=== PATIENT | female | born 1980 | race Caucasian/White ===

== ENCOUNTER 2017-07-14 14:44 | Emergency (ER) | payer OTHER ==
--- NOTE | 2017-07-14 15:01 | ED Physician Documentation ---
PD HPI Fall - Stated complaint Stated Complaint: FALL/ BACK & L BACK/LEG PAIN - Chief complaint Chief Complaint: Ext Problem - History obtained from History obtained from: Patient - History of Present Illness Mechanism of injury: Slipped Fall distance: Standing position, Less than 5ft Where injury occurred: Home Timing - onset: Today Injury(ies) location: Back (slipped and landed onto buttocks and low back, then slid down about 6 steps. Pain just in low back.). No: Head, Neck, Chest, Abdomen Quality of pain: Pain Associated symptoms: No: LOC, AMS, Weakness, Paresthesias Similar symptoms before: Has not had sx before Recently seen: Not recently seen Review of Systems : denies: Incontinent Musculoskeletal: reports: Back pain. denies: Neck pain, Extremity pain Neurologic: denies: Focal weakness, Numbness, Headache, Head injury PD PAST MEDICAL HISTORY - Past Medical History Cardiovascular: None Respiratory: None Neuro: Headache/migraine Endocrine/Autoimmune: None - Past Surgical History Past Surgical History: Yes HEENT: Tonsil/Adenoidectomy - Present Medications Home Medications: Ambulatory Orders Medication Instructions Recorded Confirmed Bcp 07/14/17 HYDROcod/ACETAM 5/325 [Preston 5/325] 1 tab PO Q6H PRN #15 tablet 07/14/17 Methocarbamol [Robaxin] 500 mg PO Q6H PRN #25 tablet 07/14/17 Naproxen [Naprosyn] 500 mg PO BID PRN #20 tablet 07/14/17 - Allergies Allergies/Adverse Reactions: Allergies Allergy/AdvReac Type Severity Reaction Status Date / Time Penicillins Allergy Anaphylaxis Verified 11/14/15 14:49 - Social History Does the pt smoke?: No Smoking Status: Never smoker Does the pt drink ETOH?: Yes Does the pt have substance abuse?: No - Immunizations Immunizations are current?: Yes PD ED PE NORMAL - Vitals Vital signs reviewed: Yes - General General: Alert and oriented X 3, No acute distress, Well developed/nourished - HEENT HEENT: Atraumatic - Neck Neck: Supple, no meningeal sign, No bony TTP, No adenopathy - Cardiac Cardiac: RRR, No murmur - Respiratory Respiratory: Clear bilaterally - Abdomen Abdomen: Normal bowel sounds, Soft, Non tender, Non distended - Back Back: No CVA TTP, Other (tender mid lumbar area mostly lateral msucles; but some midline tender as well. ) - Derm Derm: Normal color, Warm and dry - Extremities Extremities: No edema, No calf tenderness / cord - Neuro Neuro: Alert and oriented X 3, No motor deficit, No sensory deficit, Normal speech Results - Vitals Vitals: Oxygen O2 Source Room air - Labs Labs: Laboratory Tests 07/14/17 13:15 Urine Color YELLOW Urine Clarity HAZY Urine pH 6.0 Ur Specific [place] >=1.030 H Urine Protein NEGATIVE Urine Glucose (UA) NEGATIVE Urine Ketones NEGATIVE Urine Occult Blood NEGATIVE Urine Nitrite NEGATIVE Urine Bilirubin NEGATIVE Urine Urobilinogen 0.2 (NORMAL) Ur Leukocyte Esterase TRACE H Urine RBC 0-5 Urine WBC 6-10 H Ur Squamous Epith Cells MOD Squamous H Urine Bacteria Moderate H Ur Microscopic Review INDICATED Urine Culture Comments NOT INDICATED Urine HCG, Qual NEGATIVE - Rads (name of study) lumbar xray Radiology: Prelim report reviewed (no fractures), EMP read contemporaneously PD MEDICAL DECISION MAKING - ED course Complexity details: reviewed results, considered differential, d/w patient Departure - Departure Disposition: 01 Home, Self Care Clinical Impression: Fall down stairs Qualifiers: Encounter type: initial encounter Qualified Code(s): W10.8XXA - Fall (on) (from ) other stairs and steps, initial encounter Contusion of lower back Qualifiers: Encounter type: initial encounter Qualified Code(s): S30.0XXA - Contusion of lower back and pelvis, initial encounter Condition: Stable Record reviewed to determine appropriate education?: Yes Instructions: ED Contusion Back Prescriptions: HYDROcod/ACETAM 5/325 [Preston 5/325] 1 tab PO Q6H PRN #15 tablet PRN Reason: Pain Methocarbamol [Robaxin] 500 mg PO Q6H PRN #25 tablet PRN Reason: Spasms Naproxen [Naprosyn] 500 mg PO BID PRN #20 tablet PRN Reason: Pain Comments: The x-ray appears normal without any signs of fracture or misalignment. He will be sore in the low back from the injury probably several days to week or more. He is some anti-inflammatories such as naproxen or ibuprofen twice daily. Add Robaxin muscle relaxant if needed for stiffness and spasm. Add Tylenol or hydrocodone if needed for worse pain. Gentle range of motion and heat for the low back. Recheck if not improving over the next few days and mostly better by a week or so. Discharge Date/Time: 07/14/17 16:19
[2017-07-14] MEDS ORDERED: METHOCARBAMOL 500 MG TABLET PO STA (15:13)
[2017-07-14] MEDS ORDERED: HYDROcod/ACETAM 5/325 MG TABLET PO STA (15:13)
[2017-07-14 15:36] LABS: BILIRUBIN,URINE NEGATIVE (NEGATIVE); GLUCOSE, URINE (UA) NEGATIVE (NEGATIVE); KETONES,URINE (UA) NEGATIVE (NEGATIVE); LEUKOCYTE ESTERASE, URINE TRACE (NEGATIVE); NITRITE,URINE NEGATIVE (NEGATIVE); OCCULT BLOOD,URINE NEGATIVE (NEGATIVE); PROTEIN,URINE NEGATIVE (NEGATIVE); UROBILINOGEN,URINE 0.2 (NORMAL) E.U./dL (NORMAL)
[2017-07-14 15:39] LABS: CLARITY,URINE HAZY (CLEAR); HCG UR QUAL NEGATIVE
[2017-07-14 15:51] LABS: BACTERIA,URINE Moderate /HPF (None Seen); RBC,URINE 0-5 /HPF (0-5); SQUAMOUS EPITHELIAL CELL,UR MOD Squamous (<= Few)
--- NOTE | 2017-07-14 16:10 | XRAY Preliminary Report ---
Exam: XR LUMBAR SPINE 2 VIEW IMPRESSION: 1. 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 [facility] SITE ID: [id number]
--- NOTE | 2017-07-14 16:10 | XRAY Report ---
EXAM: LUMBOSACRAL SPINE RADIOGRAPHY EXAM DATE: 07/14/2017 04:01 PM. CLINICAL HISTORY: Fell on steps and landed buttock/low back. . COMPARISONS: None. TECHNIQUE: 3 views. FINDINGS: Alignment: No subluxation or scoliosis. Bones: Five [id number] lumbar vertebral bodies are present. The vertebral bodies appear normal i n height. Disks: There is mild disk height loss at L4-L5 and L5-S1. Facets: Facet joints appear in satisfactory alignment. Sacroiliac Joints: Unremarkable. Soft Tissues: There is a nonobstructive bowel gas pattern. IMPRESSION: 1. 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 [facility] Referring Provider Line: [phone] SITE ID: [id number]
[2017-07-14 16:26] VITALS: BP 120/81
== END 2017-07-14 16:19 | disposition home or self-care (01) ==
LOC: ED 14:44
DX: S30.0XXA Contusion of lower back and pelvis, initial encounter (principal); W10.9XXA Fall (on) (from) unspecified stairs and steps, initial encounter; Y92.018 Other place in single-family (private) house as the place of occurrence of the external cause
CPT/HCPCS: 72100; 81001; 81025; 99283; 99284; A9270; 81003; 87086

== ENCOUNTER 2017-12-04 12:29 | Emergency (ER) | payer OTHER ==
[2017-12-04 12:38] VITALS: BP 131/72
--- NOTE | 2017-12-04 12:42 | ED Physician Documentation ---
PD HPI URI - Stated complaint Stated Complaint: SINUS PAIN - Chief complaint Chief Complaint: Heent - History obtained from History obtained from: Patient - History of Present Illness Timing - onset: How many weeks ago (1-2 weeks of runny nose and congestion, now with 1-2 days of green discharge and focal sinus pressure/pain frontal area.) Timing details: Gradual onset, Still present Associated symptoms: Fever (the past day or so), Chills, Nasal congestion, Rhinorrhea, Sinus pain. No: Sore throat, Dry cough Contributing factors: No: Sick contact, Travel, Immunocompromised Improves by: No: Medication (OTC cold meds) Recently seen: Not recently seen Review of Systems Constitutional: reports: Fever, Myalgias Nose: reports: Rhinorrhea / runny nose, Congestion, Sinus pressure / pain Throat: denies: Sore throat Cardiac: denies: Chest pain / pressure, Palpitations Respiratory: denies: Dyspnea, Cough GI: denies: Abdominal Pain, Nausea, Vomiting, Diarrhea Skin: denies: Rash PD PAST MEDICAL HISTORY - Past Medical History Cardiovascular: None Respiratory: None Endocrine/Autoimmune: None - Past Surgical History Past Surgical History: Yes HEENT: Tonsil/Adenoidectomy - Present Medications Home Medications: Ambulatory Orders Medication Instructions Recorded Confirmed Bcp 07/14/17 Cephalexin [Keflex] 500 mg PO TID #21 capsule 12/04/17 Dexamethasone [Decadron] 4 mg PO DAILY #5 tablet 12/04/17 - Allergies Allergies/Adverse Reactions: Allergies Allergy/AdvReac Type Severity Reaction Status Date / Time Penicillins Allergy Anaphylaxis Verified 12/04/17 12:38 - Social History Does the pt smoke?: No Smoking Status: Never smoker Does the pt drink ETOH?: Yes Does the pt have substance abuse?: No - Immunizations Immunizations are current?: Yes PD ED PE NORMAL - Vitals Vital signs reviewed: Yes - General General: Alert and oriented X 3, No acute distress, Well developed/nourished - HEENT HEENT: Ears normal, Pharynx benign, Other (sinus tender to percussion frontal area) - Neck Neck: Supple, no meningeal sign, No adenopathy - Cardiac Cardiac: RRR, No murmur - Respiratory Respiratory: Clear bilaterally - Derm Derm: Normal color, Warm and dry, No rash - Neuro Neuro: Alert and oriented X 3, No motor deficit, Normal speech Results - Vitals Vitals: Oxygen O2 Source Room air PD MEDICAL DECISION MAKING - ED course Complexity details: considered differential, d/w patient - Sepsis Event Vital Signs: Oxygen O2 Source Room air Departure - Departure Disposition: 01 Home, Self Care Clinical Impression: Acute sinusitis Qualifiers: Sinusitis location: unspecified location Recurrence: non-recurrent Qualified Code(s): J01.90 - Acute sinusitis, unspecified Condition: Stable Record reviewed to determine appropriate education?: Yes Instructions: ED Sinusitis Abx Tx Follow-Up: Juan Chakraborty ARNP [Primary Care Provider] - Prescriptions: Cephalexin [Keflex] 500 mg PO TID #21 capsule Dexamethasone [Decadron] 4 mg PO DAILY #5 tablet Comments: Drink lots of fluids. Saline nasal spray several times a day to clear the nasal passage and promote sinus drainage. Decadron steroid anti-inflammatory daily for 5 more days. Cephalexin 3 times a day for a week for the infection. Tylenol or ibuprofen or naproxen if needed for pains. Recheck if not improving over the next few days. Discharge Date/Time: 12/04/17 14:02
[2017-12-04] MEDS ORDERED: DEXAMETHASONE 10 MG/ML VIAL PO STA (13:04)
[2017-12-04] MEDS ORDERED: IBUPROFEN 600 MG TABLET PO STA (13:04)
[2017-12-04] MEDS ORDERED: cephALEXin 250 MG CAPSULE PO STA (13:04)
== END 2017-12-04 14:02 | disposition home or self-care (01) ==
LOC: ED 12:29
DX: J01.90 Acute sinusitis, unspecified (principal)
CPT/HCPCS: 99283; A9270